=== PATIENT | female | born 1995 | race Caucasian/White ===

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

== ENCOUNTER 2017-04-05 01:04 | Emergency (ER) | payer BC, OTHER ==
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
[2017-04-05 02:51] LABS: Basophils % (A) 0 %; CH 33.3; CHCM 34.4; Eosinophils # (A) 0.1 k/uL (0-0.7); Eosinophils % (A) 2 %; HCT 43.1 % (34.0-46.0); HDW 2.17; HGB 14.2 gm/dL (11.4-16.0); Luc # (Auto) 0.17; Luc % (Auto) 2; Lymphocytes # (A) 2.3 k/uL (1.0-4.8); Lymphocytes % (A) 27 %; MCHC 32.9 g/dL (31.0-37.0); MCV 97.2 fL (80.0-100.0); Monocytes # (A) 0.6 k/uL (0-1.0); Monocytes % (A) 7 %; Neutrophils # (A) 5.3 k/uL (1.3-7.7); Neutrophils % (A) 62 %; RBC 4.44 m/uL (3.80-5.40); RDW 12.5 % (11.5-15.5); WBC 8.5 k/uL (4.0-11.0); WBC (Perox) 8.85
[2017-04-05 02:59] LABS: Appearance,Urine Clear (Clear); Bilirubin,Urine Negative (Negative); Glucose,Urine (UA) Negative (Negative); Ketones,Urine Negative (Negative); Leukocyte Esterase,Urine Negative (Negative); Nitrite,Urine Negative (Negative); Protein,Urine Negative (Negative); Specific Gravity,Urine 1.019 (1.001-1.035); UA Billing (MACRO vs. MICRO) CHEM; Urobilinogen,Urine <2.0 mg/dL (<2.0)
[2017-04-05 03:05] LABS: ALT 25 U/L (9-52); AST 17 U/L (14-36); Acetaminophen <10.0 ug/mL; Alcohol <10 mg/dL; Alkaline Phosphatase 72 U/L (38-126); Anion Gap 12 mmol/L; Blood Urea Nitrogen 12 mg/dL (7-17); Calcium 9.8 mg/dL (8.4-10.2); Carbon Dioxide 24 mmol/L (22-30); Chloride 104 mmol/L (98-107); Glucose 89 mg/dL (74-99); Non-African American GFR(MDRD) >60 (>60 ml/min/1.73 sqM); Salicylate <1.0 mg/dL; Sodium 140 mmol/L (137-145); Total Bilirubin 0.5 mg/dL (0.2-1.3); Total Protein 7.1 g/dL (6.3-8.2)
[2017-04-05 03:53] VITALS: RESP 18
[2017-04-05 05:31] VITALS: BP 100/62; PULSE 76; TEMP 97.4
== END 2017-04-05 05:30 | disposition home or self-care (01) ==
LOC: EC 01:04
DX: F32.9 Major depressive disorder, single episode, unspecified (principal)
CPT/HCPCS: 36415; 80053; 80306; 80320; 81003; 81025; 82075; 83520; 85025; 93005; 99285

== ENCOUNTER 2017-07-11 02:48 | Inpatient (IN) | payer BC, OTHER ==
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
[2017-07-11 04:25] LABS: Amphetamine Screen,Urine Not Detected (NotDetected); Barbiturate Screen,Urine Not Detected (NotDetected); Benzodiazepines Screen,Urine Not Detected (NotDetected); Cocaine Screen,Urine Not Detected (NotDetected); Methadone Screen, Urine Not Detected (NotDetected); Opiate Screen,Urine Not Detected (NotDetected); Oxycodone Screen, Urine Not Detected (NotDetected); Phencyclidine Screen,Urine Not Detected (NotDetected); Tricyclic Antidepressant,Urine Not Detected (NotDetected); Urn Cannabinoid Scrn Not Detected (NotDetected)
[2017-07-11 07:06] LABS: Basophils % (A) 0 %; Eosinophils # (A) 0.1 k/uL (0-0.7); Eosinophils % (A) 2 %; HCT 45.4 % (34.0-46.0); HGB 14.7 gm/dL (11.4-16.0); Lymphocytes # (A) 1.6 k/uL (1.0-4.8); Lymphocytes % (A) 28 %; MCH 30.4 pg (25.0-35.0); MCHC 32.3 g/dL (31.0-37.0); Mean Platelet Volume 7.1; Monocytes # (A) 0.4 k/uL (0-1.0); Monocytes % (A) 7 %; Neutrophils # (A) 3.5 k/uL (1.3-7.7); Neutrophils % (A) 61 %; Platelet Count 311 k/uL (150-450); RBC 4.83 m/uL (3.80-5.40); RDW 12.4 % (11.5-15.5); WBC 5.7 k/uL (4.0-11.0)
[2017-07-11 07:13] LABS: ALT 28 U/L (9-52); AST 18 U/L (14-36); Albumin 4.7 g/dL (3.5-5.0); Alkaline Phosphatase 64 U/L (38-126); Anion Gap 14 mmol/L; Blood Urea Nitrogen 7 mg/dL (7-17); Calcium 9.9 mg/dL (8.4-10.2); Carbon Dioxide 27 mmol/L (22-30); Chloride 105 mmol/L (98-107); Glucose 100 mg/dL (74-99); Potassium 4.4 mmol/L (3.5-5.1); Sodium 146 mmol/L (137-145); Total Bilirubin 0.3 mg/dL (0.2-1.3); Total Protein 7.2 g/dL (6.3-8.2)
[2017-07-11 07:24] LABS: Appearance,Urine Clear (Clear); Bilirubin,Urine Negative (Negative); Blood,Urine Negative (Negative); Color,Urine Colorless; Glucose,Urine (UA) Negative (Negative); Ketones,Urine Negative (Negative); Leukocyte Esterase,Urine Negative (Negative); Nitrite,Urine Negative (Negative); PH, Urine 6.5 (5.0-8.0); Protein,Urine Negative (Negative); Specific Gravity,Urine 1.002 (1.001-1.035); Urobilinogen,Urine <2.0 mg/dL (<2.0)
[2017-07-11] MEDS ORDERED: ACETAMINOPHEN TAB 325 MG TAB PO PRN (10:44)
[2017-07-11] MEDS ORDERED: ZIPRASIDONE 20 MG VIAL IM PRN (10:44)
[2017-07-11] MEDS ORDERED: MAG HYDROX/AL HYDROX/SIMETH 30 ML CUP PO PRN (10:44)
[2017-07-11] MEDS ORDERED: LORazepam 1 MG TAB PO PRN (10:44)
[2017-07-11] MEDS ORDERED: MAGNESIUM HYDROXIDE 2,400 MG/10 ML CUP PO PRN (10:44)
[2017-07-11 11:38] VITALS: BMI 24.3
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
[2017-07-12 07:07] VITALS: BP 121/57; PULSE 94; RESP 16; TEMP 97.8
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
== END 2017-07-12 10:59 | disposition home or self-care (01) | DRG 882 ==
LOC: EC 02:48 → 3MHU 10:40
PROVIDERS: ADMIT Psychiatry & Neurology Psychiatry; ATTEND Psychiatry & Neurology Psychiatry
DX: F43.23 Adjustment disorder with mixed anxiety and depressed mood (principal); T76.21XA Adult sexual abuse, suspected, initial encounter; G43.909 Migraine, unspecified, not intractable, without status migrainosus; Z86.59 Personal history of other mental and behavioral disorders; Z91.018 Allergy to other foods
CPT/HCPCS: 36415; 80053; 80306; 80307; 80346; 80357; 80359; 81003; 81025; 82075; 84443; 85025; 99285

== ENCOUNTER 2020-08-03 19:14 | Emergency (ER) | payer OTHER ==
[2020-08-03 20:19] LABS: Anisocytosis Slight; Basophils % (A) 0 %; Eosinophils # (A) 0.1 k/uL (0-0.7); Eosinophils % (A) 2 %; HCT 38.6 % (34.0-46.0); HGB 12.6 gm/dL (11.4-16.0); Hypochromasia Slight; Lymphocytes # (A) 2.3 k/uL (1.0-4.8); Lymphocytes % (A) 27 %; MCH 26.4 pg (25.0-35.0); MCHC 32.7 g/dL (31.0-37.0); MCV 80.8 fL (80.0-100.0); Mean Platelet Volume 6.5; Monocytes # (A) 0.7 k/uL (0-1.0); Monocytes % (A) 8 %; Neutrophils # (A) 5.2 k/uL (1.3-7.7); Neutrophils % (A) 61 %; Platelet Count 379 k/uL (150-450); RBC 4.77 m/uL (3.80-5.40); RDW 17.2 % (11.5-15.5); WBC 8.5 k/uL (3.8-10.6)
[2020-08-03 20:21] LABS: Appearance,Urine Clear (Clear); Bacteria,Urine Rare /hpf; Bilirubin,Urine Negative (Negative); Blood,Urine Negative (Negative); Color,Urine Yellow; Glucose,Urine (UA) Negative (Negative); Ketones,Urine Negative (Negative); Leukocyte Esterase,Urine Small (Negative); Mucus,Urine Rare /hpf; Nitrite,Urine Negative (Negative); PH, Urine 6.5 (5.0-8.0); Protein,Urine Trace (Negative); RBC,Urine 4 /hpf (0-5); Specific Gravity,Urine 1.023 (1.001-1.035); Squamous Epithelial Cell,Urine 5 /hpf (0-4); Urobilinogen,Urine <2.0 mg/dL (<2.0); WBC,Urine 6 /hpf (0-5)
--- NOTE | 2020-08-03 20:22 | ED ---
Female Urogenital HPI - General Chief complaint: Vaginal Bleeding Stated complaint: Abdominal pain Time Seen by Provider: 08/03/20 19:33 Source: patient, EMS, RN notes reviewed Mode of arrival: EMS - History of Present Illness Initial comments: 25-year-old female presents to the emergency room for a chief complaint of vaginal bleeding. Patient states yesterday she started to have abdominal pain in her pelvic region. Patient reports that this morning around 5 AM she started to have vaginal bleeding. States she was passing a few clots. Patient states she passed a golf ball size clot and then a few smaller clots. States the bleeding has slowed down since. Patient states her last period was the beginning of May so 3 months ago. She did not feel that she was . She has not taken a test. Patient has no other complaints at this time including shortness of breath, chest pain, abdominal pain, nausea or vomiting, headache, or visual changes. Last Menstrual Period: 05/05/20 - Related Data Home Medications Medication Instructions Recorded Confirmed Buprenorphine HCl/Naloxone HCl 1 film SL DAILY 08/03/20 08/03/20 [Suboxone 8 mg-2 mg Sl Film] Ondansetron HCl [Zofran] 4 mg PO Q6H PRN 08/03/20 08/03/20 hydrOXYzine HCL [Atarax] 50 mg PO Q8H PRN 08/03/20 08/03/20 Allergies Allergy/AdvReac Type Severity Reaction Status Date / Time strawberry Allergy Anaphylaxis Verified 08/03/20 21:17 Review of Systems ROS Statement: Those systems with pertinent positive or pertinent negative responses have been documented in the HPI. ROS Other: All systems not noted in ROS Statement are negative. Past Medical History Past Medical History: No Reported History History of Any Multi-Drug Resistant Organisms: None Reported Additional Past Surgical History / Comment(s): Ovarian Cyst surgery,kidney s tones. Past Psychological History: Anxiety, Depression Smoking Status: Never smoker Past Alcohol Use History: None Reported Past Drug Use History: Cocaine General Exam General appearance: alert, in no apparent distress Head exam: Present: atraumatic, normal inspection Eye exam: Present: normal appearance, PERRL, EOMI. Absent: scleral icterus, conjunctival injection ENT exam: Present: normal exam, mucous membranes moist Neck exam: Present: normal inspection, full ROM. Absent: tenderness Respiratory exam: Present: normal lung sounds bilaterally. Absent: respiratory distress, wheezes, rales, rhonchi, stridor Cardiovascular Exam: Present: regular rate, normal rhythm, normal heart sounds GI/Abdominal exam: Present: soft, tenderness (Minimal lower abdominal tenderness generalized in nature), normal bowel sounds. Absent: distended, guarding, rebound, rigid External exam: Present: normal external exam. Absent: erythema, swelling, lesions, lacerations, ecchymosis, other Speculum exam: Present: normal speculum exam. Absent: erythema, vaginal discharge, cervical discharge, vaginal bleeding, foreign body, tissue, laceration By manual exam: Present: adnexal tenderness, uterine tenderness. Absent: normal by manual exam, cervical motion tenderness, adnexal mass, uterine enlargement Course Vital Signs 08/03/20 19:18 Temperature 97.8 F Pulse Rate 106 H Respiratory 19 Rate Blood Pressure 130/92 O2 Sat by Pulse 100 Oximetry Medical Decision Making - Medical Decision Making HPI and physical exam as documented. No significant vaginal bleeding on pelvic. CBC CMP unremarkable. Urinalysis unremarkable. Troponin is negative. HCG is negative. Pelvic ultrasound impression is normal. Patient likely experiencing dysfunctional uterine bleeding. She did have some improvement from Toradol. Patient will follow up with her primary care doctor or MEDICAL PARASITOLOGIST. She has any worsening symptoms she will return to the emergency room. Patient and her mother are agreeable to this. I discussed this case with attending Dr. Berman who agrees with this assessment and treatment plan. - Lab Data Result diagrams: 08/03/20 19:51 08/03/20 19:51 Lab Results 08/03/20 08/03/20 08/03/20 Range/Units 19:51 19:51 19:51 WBC 8.5 (3.8-10.6) k/uL RBC 4.77 (3.80-5.40) m/uL Hgb 12.6 (11.4-16.0) gm/dL Hct 38.6 (34.0-46.0) % MCV 80.8 (80.0-100.0) fL MCH 26.4 (25.0-35.0) pg MCHC 32.7 (31.0-37.0) g/dL RDW 17.2 H (11.5-15.5) % Plt Count 379 (150-450) k/uL MPV 6.5 Neutrophils % 61 % Lymphocytes % 27 % Monocytes % 8 % Eosinophils % 2 % Basophils % 0 % Neutrophils # 5.2 (1.3-7.7) k/uL Lymphocytes # 2.3 (1.0-4.8) k/uL Monocytes # 0.7 (0-1.0) k/uL Eosinophils # 0.1 (0-0.7) k/uL Basophils # 0.0 (0-0.2) k/uL Hypochromasia Slight Anisocytosis Slight Sodium (137-145) mmol/L Potassium (3.5-5.1) mmol/L Chloride (98-107) mmol/L Carbon Dioxide (22-30) mmol/L Anion Gap mmol/L BUN (7-17) mg/dL Creatinine (0.52-1.04) mg/dL Est GFR (CKD-EPI)AfAm (>60 ml/min/1.73 sqM) Est GFR (CKD-EPI)NonAf (>60 ml/min/1.73 sqM) Glucose (74-99) mg/dL Calcium (8.4-10.2) mg/dL Total Bilirubin (0.2-1.3) mg/dL AST (14-36) U/L ALT (4-34) U/L Alkaline Phosphatase (38-126) U/L Total Protein (6.3-8.2) g/dL Albumin (3.5-5.0) g/dL HCG, Quant mIU/mL Urine Color Yellow Urine Appearance Clear (Clear) Urine pH 6.5 (5.0-8.0) Ur Specific [place] 1.023 (1.001-1.035) Urine Protein Trace H (Negative) Urine Glucose (UA) Negative (Negative) Urine Ketones Negative (Negative) Urine Blood Negative (Negative) Urine Nitrite Negative (Negative) Urine Bilirubin Negative (Negative) Urine Urobilinogen <2.0 (<2.0) mg/dL Ur Leukocyte Esterase Small H (Negative) Urine RBC 4 (0-5) /hpf Urine WBC 6 H (0-5) /hpf Ur Squamous Epith Cells 5 H (0-4) /hpf Urine Bacteria Rare H (None) /hpf Urine Mucus Rare H (None) /hpf Urine HCG, Qual Not Detected (Not Detectd) Trichomonas Ag (Rapid) (Negative) 08/03/20 08/03/20 Range/Units 19:51 19:51 WBC (3.8-10.6) k/uL RBC (3.80-5.40) m/uL Hgb (11.4-16.0) gm/dL Hct (34.0-46.0) % MCV (80.0-100.0) fL MCH (25.0-35.0) pg MCHC (31.0-37.0) g/dL RDW (11.5-15.5) % Plt Count (150-450) k/uL MPV Neutrophils % % Lymphocytes % % Monocytes % % Eosinophils % % Basophils % % Neutrophils # (1.3-7.7) k/uL Lymphocytes # (1.0-4.8) k/uL Monocytes # (0-1.0) k/uL Eosinophils # (0-0.7) k/uL Basophils # (0-0.2) k/uL Hypochromasia Anisocytosis Sodium 140 (137-145) mmol/L Potassium 4.2 (3.5-5.1) mmol/L Chloride 105 (98-107) mmol/L Carbon Dioxide 26 (22-30) mmol/L Anion Gap 9 mmol/L BUN 10 (7-17) mg/dL Creatinine 0.73 (0.52-1.04) mg/dL Est GFR (CKD-EPI)AfAm >90 (>60 ml/min/1.73 sqM) Est GFR (CKD-EPI)NonAf >90 (>60 ml/min/1.73 sqM) Glucose 120 H (74-99) mg/dL Calcium 9.2 (8.4-10.2) mg/dL Total Bilirubin 0.3 (0.2-1.3) mg/dL AST 16 (14-36) U/L ALT 11 (4-34) U/L Alkaline Phosphatase 80 (38-126) U/L Total Protein 6.8 (6.3-8.2) g/dL Albumin 4.1 (3.5-5.0) g/dL HCG, Quant <2.4 mIU/mL Urine Color Urine Appearance (Clear) Urine pH (5.0-8.0) Ur Specific [place] (1.001-1.035) Urine Protein (Negative) Urine Glucose (UA) (Negative) Urine Ketones (Negative) Urine Blood (Negative) Urine Nitrite (Negative) Urine Bilirubin (Negative) Urine Urobilinogen (<2.0) mg/dL Ur Leukocyte Esterase (Negative) Urine RBC (0-5) /hpf Urine WBC (0-5) /hpf Ur Squamous Epith Cells (0-4) /hpf Urine Bacteria (None) /hpf Urine Mucus (None) /hpf Urine HCG, Qual (Not Detectd) Trichomonas Ag (Rapid) Negative (Negative) Disposition Clinical Impression: Dysfunctional uterine bleeding, Pelvic pain Disposition: HOME SELF-CARE Condition: Good Instructions (If sedation given, give patient instructions): Dysmenorrhea (ED) Additional Instructions: Please take Motrin or Tylenol for pain. Please follow-up with primary care MEDICAL PARASITOLOGIST. If you have worsening symptoms such as worsening pain or bleeding return to the emergency room. Is patient prescribed a controlled substance at d/c from ED?: No Referrals: Nonstaff,Physician [Primary Care Provider] - 1-2 days Time of Disposition: 22:43
[2020-08-03 20:34] LABS: ALT 11 U/L (4-34); AST 16 U/L (14-36); African American GFR (CKD) >90 (>60 ml/min/1.73 sqM); Albumin 4.1 g/dL (3.5-5.0); Alkaline Phosphatase 80 U/L (38-126); Anion Gap 9 mmol/L; Blood Urea Nitrogen 10 mg/dL (7-17); Calcium 9.2 mg/dL (8.4-10.2); Carbon Dioxide 26 mmol/L (22-30); Chloride 105 mmol/L (98-107); Glucose 120 mg/dL (74-99); Non-African American GFR(CKD) >90 (>60 ml/min/1.73 sqM); Potassium 4.2 mmol/L (3.5-5.1); Sodium 140 mmol/L (137-145); Total Bilirubin 0.3 mg/dL (0.2-1.3); Total Protein 6.8 g/dL (6.3-8.2)
[2020-08-03 20:51] LABS: HCG,Quantitative Serum <2.4 mIU/mL
[2020-08-03] MEDS ORDERED: KETOROLAC 15 MG/ML 1 ML VIAL IVP STA (21:02)
--- NOTE | 2020-08-03 22:10 | US ---
EXAMINATION TYPE: US pelvic complete DATE OF EXAM: 08/03/2020 COMPARISON: CT, US CLINICAL HISTORY: pain. Pain and bleeding. Hx ovarian cyst removal in 2013. . TECHNIQUE: Transabdominal (TA). Transabdominal sonographic images of the pelvis were acquired. TV exam not performed per patient's request. Uterus, ovaries and endometrium visualized TA. Date of LMP: 05/05/2020. EXAM MEASUREMENTS: Uterus: 8.3 x 5.4 x 4.3 cm Endometrial Stripe: 0.83 cm Right Ovary: 4.0 x 2.1 x 1.9 cm Left Ovary: 3.9 x 2.5 x 2.2 cm 1. Uterus: Retroverted Appears slightly heterogeneous. 2. Endometrium: Measures 0.83 cm. 3. Right Ovary: Measures upper limits of normal versus slightly enlarged. Anechoic area seen measuri ng 1.2 x 1.2 x 0.9 cm. 4. Left Ovary: Measures upper limits of normal versus slightly enlarged. Spectral, color and waveform doppler imaging shows arterial and venous flow within the ovaries. 5. Bilateral Adnexa: Appear wnl. 6. Posterior cul-de-sac: Possible hypoechoic fluid measuring 3.1 x 2.1 x 1.5 cm. IMPRESSION: Normal uterus and endometrium. No adnexal mass or free fluid. No evidence of ovarian torsion.
[2020-08-03 23:01] VITALS: BP 128/74; PULSE 77; RESP 18; TEMP 98.4
== END 2020-08-03 23:01 | disposition home or self-care (01) ==
LOC: EC 19:14
DX: N93.8 Other specified abnormal uterine and vaginal bleeding (principal); R10.2 Pelvic and perineal pain; Z91.018 Allergy to other foods
CPT/HCPCS: 36415; 80053; 85025; 81001; 81025; 84702; 87808; 87491; 87591; 93975; 76856; 99284; 96374; J1885